=== PATIENT | female | born 1990 | race African-American/Black ===

== ENCOUNTER 2021-11-30 22:49 | Emergency (ER) | payer MEDICAID, SELFPAY ==
[2021-11-30 22:57] VITALS: BP 131/88; BP 134/88; PULSE 66; PULSE 70; RESP 15; TEMP 36.4; O2SAT 100; BMI 31.0
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
--- NOTE | 2021-11-30 23:02 | PC.NURSE ---
Pt brought in by EMS Per EMS, pt did heroin with boyfriend Per pt, also did some cocaine Pt arousable to vigorous stimuli. 100% on RA Pt 4 months Had been 4x before: had an and has 1 child at home
[2021-12-01 00:52] VITALS: BP 127/87; PULSE 62; RESP 16; O2SAT 98
[2021-12-01 02:31] VITALS: BP 117/78; PULSE 66; RESP 18; O2SAT 99
--- NOTE | 2021-12-01 04:26 | PC.NURSE ---
Pt resting on stretcher with eyes closed Breathing even and unlabored Pt arouseable through vigorous stimulation Will continue to monitor
[2021-12-01 05:26] VITALS: BP 128/91; PULSE 67; RESP 16; O2SAT 99
--- NOTE | 2021-12-01 06:12 | PC.NURSE ---
Pt awake and tearful Pt states do not remember using heroine at [facility] last night Pt assisted to bedside commode and back to stretcher. Pt tolerated well Pt resting on her side aware
[2021-12-01 06:36] VITALS: BP 107/70; PULSE 64; RESP 18; O2SAT 100
[2021-12-01 07:52] VITALS: BP 113/74; PULSE 64; RESP 13; O2SAT 99
--- NOTE | 2021-12-01 10:11 | HO.SUDE ---
SUDE Patient is a 31 year old Latvian speaking female who presented to [facility] ED after an accidental overdose. This data analyst report writer met with patient to discuss substance use and treatment options. Patient reports she has been using about one bundle of heroin a day. Patient denies previous overdoses. Patient reports she has never been to detox before. Discussed ATS treatment with patient and she is not interested at this time. Patient reports she has been on methadone once previously and found it helpful. Patient plans to get on methadone again. Discussed methadone treatment with patient and provided patient with information on local methadone clinics. Discussed recovery supports in the community with patient. Patient provided with contact information for this data analyst report writer in the event that she has additional questions or needs assistance connecting with methadone clinic. Discussed case with ED provider.
[2021-12-01] MEDS: Naloxone HCl Nasal TAKE HOME 4 MG SPRAY NOSTRILALT (10:13)
== END 2021-12-01 11:36 | disposition home or self-care (01) ==
PROVIDERS: Emergency Provider Emergency Medicine
DX: O99.322 Drug use complicating pregnancy, second trimester (principal); F19.10 Other psychoactive substance abuse, uncomplicated; R40.0 Somnolence; Z3A.17 17 weeks gestation of pregnancy
CPT/HCPCS: 99284